=== PATIENT | male | born 1995 | race Caucasian/White ===

== ENCOUNTER 2017-05-27 01:08 | Inpatient (IN) | payer OTHER ==
[~2017-05-27] VITALS: Ht 195.6 cm; Wt 95.0 kg
[~2017-05-27 01:08] MED LIST: CEPH500C3 PO; KETO10 PO; LEXA20TA PO; TRAZ100 PO
[2017-05-27 01:25] VITALS: BP 119/76; PULSE 81; PULSE 87; RESP 12; TEMP 98.1; O2SAT 97
[2017-05-27] MEDS ORDERED: SODIUM CHLORIDE 0.9% FLUSH 10 ML FLUSH IV FLUSH PRN (01:30)
[2017-05-27 01:49] LABS: BASOPHIL # 0.1 TH/MM3 (0-0.2); BASOPHIL % 0.8 % (0.0-2.0); EOSINOPHIL # 0.1 TH/MM3 (0-0.4); EOSINOPHIL % 0.9 % (0.0-4.0); HEMO FLAGS DIFF FINAL; LYMPH % 28.9 % (9.0-44.0); LYMPHOCYTE # 1.9 TH/MM3 (1.0-4.8); MEAN CELL VOLUME 82.7 FL (80.0-100.0); MEAN CORPUSCULAR HEMOGLOBIN 26.8 PG (27.0-34.0); MEAN CORPUSCULAR HGB CONC 32.4 % (32.0-36.0); MONO % 9.9 % (0.0-8.0); NEUT % 59.5 % (16.0-70.0); PLATELET COUNT 216 TH/MM3 (150-450); RED BLOOD COUNT 5.21 MIL/MM3 (4.50-5.90); RED CELL DISTRIBUTION WIDTH 15.6 % (11.6-17.2); WHITE BLOOD COUNT 6.6 TH/MM3 (4.0-11.0)
--- NOTE | 2017-05-27 01:53 | PD ---
HPI Chief Complaint: OD/ Ingestion Time Seen by Provider: 01:30 Travel History International Travel<30 days: No Contact w/Intl Traveler<30days: No Traveled to known affect area: No History of Present Illness HPI Patient comes in under a [place] act if reportedly ingesting 8 sleeping pills to try to harm himself per [place]. Patient states he doesn't know why he did this. Patient states he took eight 50 mg Seroquel. Patient denies any suicidal or homicidal ideations. Patient states he is prescribed Seroquel and normally takes 3 tabs to help him sleep as needed. Denies any chest pain, shortness of breath, fevers, abdominal pain, headaches, numbness or tingling anywhere. PFSH Past Medical History Arthritis: No Asthma: No Autoimmune Disease: No Depression: Yes Heart Rhythm Problems: No High Cholesterol: No Chemotherapy: No Chest Pain: No Congestive Heart Failure: No COPD: No Cerebrovascular Accident: No Diminished Hearing: No Endocrine: No GERD: No Genitourinary: No Headaches: No (See EMR) Hiatal Hernia: No Immune Disorder: No Kidney Stones: No Musculoskeletal: No Neurologic: No Psychiatric: Yes (Adjustment Reaction with mixed emotional featuers/Marijuana use) Reproductive: No Immunizations Current: Yes Migraines: No Radiation Therapy: No Renal Failure: No Sickle Cell Disease: No Sleep Apnea: No Thyroid Disease: No Ulcer: No Past Surgical History AICD: No Arteriovenous Shunt: No Pacemaker: No Other Surgery: Yes Social History Alcohol Use: Yes (PT STATES " ALMOST NEVER") Tobacco Use: Yes Substance Use: No (PATIENT DENIES) Allergies-Medications (Allergen,Severity, Reaction): Coded Allergies: No Known Allergies (Verified , 08/06/16) Reported Meds & Prescriptions Reported Meds & Active Scripts Active Reported Seroquel (Quetiapine Fumarate) 50 Mg Tab 50 Mg PO HS Review of Systems Except as stated in HPI: all other systems reviewed are Neg Physical Exam Narrative GENERAL: Well-developed, well nourished, in no acute distress, and non-ill appearing. Sleepy but answering questions appropriately. SKIN: Focused skin assessment warm and dry. HEAD: Atraumatic. Normocephalic. EYES: Pupils equal, pinpoint, and round. EOMI. No scleral icterus. No injection or drainage. ENT: No nasal bleeding or discharge. Mucous membranes pink and moist. NECK: Trachea midline. Supple. No nuclear rigidity. CARDIOVASCULAR: Regular rate and rhythm. No murmur appreciated. RESPIRATORY: No accessory muscle use. No respiratory distress. Clear to auscultation. Breath sounds equal bilaterally. MUSCULOSKELETAL: No obvious deformities. No clubbing. No cyanosis. No edema. Full range of motion. NEUROLOGICAL: Awake and alert. No obvious cranial nerve deficits. Motor grossly within normal limits. Normal speech. PSYCHIATRIC: Abnormal insight and judgment normal. Data Data Last Documented VS Vital Signs Date Time Temp Pulse Resp B/P Pulse Ox O2 Delivery O2 Flow Rate FiO2 05/27/17 04:11 80 16 127/60 98 Room Air 05/27/17 01:25 98.1 Orders Complete Blood Count With Diff (05/27/17 01:18) Comprehensive Metabolic Panel (05/27/17 01:18) Electrocardiogram (05/27/17 01:18) Psych Screen (05/27/17 01:18) Drug Screen, Random Urine (05/27/17:18) Alcohol (Ethanol) (05/27/17 01:18) Salicylates (Aspirin) (05/27/17 01:18) Tylenol (Acetaminophen) (05/27/17 01:18) Iv Access Insert/Monitor (05/27/17:18) Ecg Monitoring (05/27/17:18) Oximetry (05/27/17 01:18) Sodium Chloride 0.9% Flush (Ns Flush) (05/27/17 01:30) Call Poison Control (05/27/17 01:18) Sodium Chlor 0.9% 1000 Ml Inj (Ns 1000 M (05/27/17 02:00) Electrocardiogram (05/27/17 ) Labs Laboratory Tests Test 05/27/17 05/27/17 01:35 02:00 White Blood Count 6.6 TH/MM3 Red Blood Count 5.21 MIL/MM3 Hemoglobin 13.9 GM/DL Hematocrit 43.0 % Mean Corpuscular Volume 82.7 FL Mean Corpuscular Hemoglobin 26.8 PG Mean Corpuscular Hemoglobin 32.4 % Concent Red Cell Distribution Width 15.6 % Platelet Count 216 TH/MM3 Mean Platelet Volume 9.1 FL Neutrophils (%) (Auto) 59.5 % Lymphocytes (%) (Auto) 28.9 % Monocytes (%) (Auto) 9.9 % Eosinophils (%) (Auto) 0.9 % Basophils (%) (Auto) 0.8 % Neutrophils # (Auto) 4.0 TH/MM3 Lymphocytes # (Auto) 1.9 TH/MM3 Monocytes # (Auto) 0.7 TH/MM3 Eosinophils # (Auto) 0.1 TH/MM3 Basophils # (Auto) 0.1 TH/MM3 CBC Comment DIFF FINAL Differential Comment Sodium Level 142 MEQ/L Potassium Level 3.5 MEQ/L Chloride Level 108 MEQ/L Carbon Dioxide Level 26.5 MEQ/L Anion Gap 8 MEQ/L Blood Urea Nitrogen 13 MG/DL Creatinine 1.20 MG/DL Estimat Glomerular Filtration 76 ML/MIN Rate Random Glucose 96 MG/DL Calcium Level 8.7 MG/DL Total Bilirubin 0.2 MG/DL Aspartate Amino Transf 22 U/L (AST/SGOT) Alanine Aminotransferase 21 U/L (ALT/SGPT) Alkaline Phosphatase 55 U/L Total Protein 7.2 GM/DL Albumin 3.9 GM/DL Salicylates Level 3.5 MG/DL Acetaminophen Level LESS THAN 2.0 MCG/ML Ethyl Alcohol Level LESS THAN 3 MG/DL Urine Opiates Screen NEG Urine Barbiturates Screen NEG Urine Amphetamines Screen NEG Urine Benzodiazepines Screen NEG Urine Cocaine Screen POS Urine Cannabinoids Screen POS MDM Medical Decision Making Medical Screen Exam Complete: Yes Emergency Medical Condition: Yes Interpretation(s) EKG reviewed by Dr. Wagner, shows normal sinus rhythm with ventricular rate of 83. No STEMI. Repeat EKG reviewed by Dr. Wagner. Shows normal sinus rhythm ventricular rate of 77. No STEMI. Differential Diagnosis Homicidal, suicidal, intentional ingestion, accidental ingestion, other Narrative Course Patient is placed on manager operations, IV was established, and labs were drawn. Poison control was contacted by RN and recommends large patient for hypotension and seizures. Labs pending currently. 0225 patient reassessed found to be resting comfortably in bed in no acute distress. Vital signs stable on cardiac monitoring. Patient was seen and examined. Labs were obtained and reviewed. Patient medically cleared for further treatment and evaluation by psych. Final disposition per psych. Diagnosis Primary Impression: Substance abuse Additional Impressions: Ingestion of substance Qualified Code: T65.94XA - Ingestion of substance, undetermined intent, initial encounter Medical clearance for psychiatric admission Condition: Stable Abad Hurst May 27, 2017 01:53
[2017-05-27] MEDS ORDERED: SODIUM CHLOR 0.9% 1000 ML INJ 1,000 ML IV ONE (02:00)
[2017-05-27] MEDS ORDERED: SERO50TA PO (02:01)
[2017-05-27 02:10] VITALS: BP 107/65; PULSE 80; RESP 12; O2SAT 97
[2017-05-27 02:27] LABS: ALT (GPT) 21 U/L (12-78); ANION GAP 8 MEQ/L (5-15); AST (GOT) 22 U/L (15-37); BICARBONATE 26.5 MEQ/L (21.0-32.0); BLOOD UREA NITROGEN 13 MG/DL (7-18); CHLORIDE 108 MEQ/L (98-107); GLOMERULAR FILTRATION RATE 76 ML/MIN (>89); POTASSIUM 3.5 MEQ/L (3.5-5.1); SODIUM (NA) 142 MEQ/L (136-145)
[2017-05-27 02:29] LABS: ACETAMINOPHEN LESS THAN 2.0 MCG/ML (10.0-30.0); ALKALINE PHOSPHATASE 55 U/L (45-117); TOTAL BILIRUBIN ADULT 0.2 MG/DL (0.2-1.0)
[2017-05-27 03:17] LABS: AMPHETAMINE, URINE NEG (NEG); BARBITURATES, URINE NEG (NEG); COCAINE, URINE POS (NEG)
[2017-05-27 04:11] VITALS: BP 127/60; PULSE 80; RESP 16; O2SAT 98
[2017-05-27 08:00] VITALS: BP 130/76; PULSE 86; RESP 16; TEMP 98; O2SAT 100
--- NOTE | 2017-05-27 15:44 | EKG ---
Date Performed: 05/27/2017 Time Performed: 04:43:00 PTAGE: 21 years EKG: Sinus rhythm EARLY REPOLARIZATION BORDERLINE ECG Compared to the PREVIOUS TRACING from 05/27/17, no significant changes DOCTOR: Russell Jenkins Interpretating Date/Time 05/27/2017 15:43:27
--- NOTE | 2017-05-27 15:51 | EKG ---
Date Performed: 05/27/2017 Time Performed: 01:23:13 PTAGE: 21 years EKG: Sinus rhythm POSSIBLE LEFT ATRIAL ENLARGEMENT POSSIBLE RIGHT VENTRICULAR CONDUCTION DELAY EARLY REPOLARIZATION DAMEON RDERLINE ECG Compared to the PREVIOUS TRACING from 02/10/13, right ventricular conduction delay and early repolarizati on are new DOCTOR: Russell Jenkins Interpretating Date/Time 05/27/2017 15:50:56
[2017-05-27] MEDS ORDERED: LEXA20TA PO (17:13)
[2017-05-27 19:00] VITALS: BP 131/69; PULSE 76; RESP 20; TEMP 98.7; O2SAT 97
[2017-05-27] MEDS ORDERED: ACETAMINOPHEN 325 MG TAB PO PRN (19:15)
[2017-05-27] MEDS ORDERED: MAGNESIUM HYDROXIDE SUSP 30 ML CUP PO PRN (19:15)
[2017-05-27] MEDS ORDERED: ALUMINUM/MAGNESIUM/SIMETH 30 ML CUP PO PRN (19:15)
[2017-05-27] MEDS: LORazepam 1 MG TAB PO PRN (20:57)
[2017-05-28 06:00] VITALS: BP 111/66; PULSE 62; RESP 18; TEMP 95.4; O2SAT 98
[2017-05-28] MEDS: ESCITALOPRAM OXALATE 20 MG TAB PO SCH (08:41)
[2017-05-28] MEDS ORDERED: PNEUMOCOCCAL POLYVALENT INJ 25 MCG/0.5 ML SYR IM ONE (09:00)
[2017-05-28 09:02] LABS: LDL CHOLESTEROL 42 MG/DL (0-99)
[2017-05-28 10:51] LABS: HEMOGLOBIN A1a 1.6 %; HEMOGLOBIN A1b 1.5 %; HEMOGLOBIN Ao 85.1 %; HEMOGLOBIN P3 3.6 %
--- NOTE | 2017-05-28 14:08 | MH ---
cc: BEBETO FAYE M.D. DATE OF ADMISSION: 05/27/2017 PRESENTING CHIEF COMPLAINT AND HISTORY OF PRESENT ILLNESS: This 21-year-old white male was brought to the emergency room of this hospital under the [place] Act initiated by the [place] [employer] because of a suspected overdose on 8 Seroquel at 50 mg each. He was evaluated by the emergency room physician and was considered medically stable and was referred to the psychiatric screener. During this evaluation, he indicated that he usually takes 200 milligrams to 400 milligrams of Seroquel when he has a difficult night; otherwise, he takes 50 milligrams at bedtime. He stated that he took 8 50-mg each of Seroquel in an attempt to fall sleep and emphasized that he had no intention to harm himself. He has previously been admitted to this unit in 2012 under the [place] Act precipitated by an argument with his father over his drug abuse. Again, he was admitted in May of 2016 after writing suicidal statements on his Facebook. Both of these admissions were under my service. The psychiatric screener reviewed the case with me and it was felt he needed to be hospitalized for further assessment and treatment. It is worth noting that both of these previous admissions were to a great extent due to chronic drug abuse. Subsequent to his last admission to this unit in May of 2016, he was transferred to the drug rehab program [facility]. Also during that admission, a mild to moderate degree of depression was noticed and as such, he was started on Lexapro. Please refer to my previous evaluation for details. Prior to this evaluation, the case was discussed with the nursing staff on the unit who indicated that since admission he has been calm and cooperative, though his usual superficial self. He has not exhibited any aggressive or self-destructive behavior nor has he made any threats of harm to self or others. At the time of this evaluation, Mr. Torres was able to recognize me. As usual, he minimized the circumstances leading to this hospitalization, "I haven't been sleeping well so I took 4 Seroquel 50-mg each around 10:00 p.m. and then I took 4 more. My girlfriend came into the bathroom and asked me what I was doing and I said, "Whatever was left in the bottle I took because I couldn't sleep. She called my father and he notified the police and they brought me here. I wasn't trying to hurt myself. I just wasn't able to sleep". While describing this, he kept smiling. He denied any significant psychosocial stressor contributing to his current behavior. Specifically, he denied any problems with his girlfriend. However after a great deal of exploration, he acknowledged experiencing "a little stress" at work. He is working in a local restaurant. On further questioning, he denied any persistent feeling of sadness, change in appetite, memory or concentration. He stated that he has continued on Lexapro up until about two weeks ago when he "ran out". Again, he continued to emphasize the fact that his overdose was not a suicide attempt. He denied any previous suicide attempts, though had threatened it in the past. On further questioning, he did not give any history suggestive bipolar affective disorder. When attempting to explore any recent history of alcohol or drug abuse he as usual denied, but then kept changing his statement the more this issue was pursued. He stated he was able to "stay clean" for a couple of months after discharge from the [facility] in June of last year but then three months ago he relapsed and started abusing opiates including intravenous use. As such, he was readmitted and completed the program and was discharged two months ago. He stated that he has remained "clean" up until now. However when informed of the fact that his urine drug screen is positive for cocaine and cannabinoid, he smiled and responded, "Yeah, I use it here and there". He denied using cocaine intravenously. He was very vague about the extent of his cocaine abuse. 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 However when questioned about it this time, he denied dealing in drugs. PAST PSYCHIATRIC HISTORY: As mentioned, he has been previously admitted to this unit twice and to the [facility] twice in the last year. He stated that he has not followed up with any psychiatrist since his discharge from this unit in June of last year and has been receiving his psych medications from Dr. Simpson, his physician at the [facility]. PAST MEDICAL HISTORY: He denied any known medical illness. Specifically, he denied any history of any cardiac problem, thyroid dysfunction, head injury or seizures. ALLERGIES: HE DENIED ANY DRUG ALLERGIES. FAMILY HISTORY AND PERSONAL HISTORY: Please refer to my previous evaluation. Suffice it to say that his father works in the radiology department at this hospital. He is currently working in a local restaurant. He is living with a different girlfriend with whom he stated that the relationship is "awesome". He described her as being very supportive. He denied any alcohol abuse. He stated he has been drinking "one beer here and there". His last drink was "a beer" on the day of admission. CLINICAL OBSERVATION AND MENTAL STATUS EXAMINATION: At the time of this evaluation, Mr. Torres presented as a casually dressed reasonably well-groomed tall, well-built white male who looked his stated age. As during previous admissions, he was rather superficial, vague and evasive minimizing the use of drugs. His responses to questions were relevant and logical. No overt anger or hostility was noticed. No tremors were noticed. His speech was coherent and appropriate. His affect was appropriate and pleasant. Subjectively he described his mood as, "I've been feeling fine". There was no evidence of any thought disorder. No oxana delusions, auditory or visual hallucinations were noticed or reported. He denied active suicidal or homicidal ideations or intent at this time. As mentioned. he repeatedly emphasized his overdose was not a suicide attempt and was an attempt to fall asleep. He denied any previous suicide attempts. Cognitive functions: He was alert, oriented to place, person and situation. Memory: Immediate: He could do 5 digits forward and 4 digits backward. Recent: He could recall 3/3 objects after 10 minutes. Remote: He could recall presidents up to President Sameer. His attention and concentration was impaired. He could do serial sevens up to 72 only with difficulty. His judgment and insight was felt to be fair. REVIEW OF SYSTEMS: He denied any diarrhea, vomiting or abdominal pain. He denied any dysuria, hematuria or frequency. He denied any chest pain, palpitations or dyspnea on exertion. He denied any muscle weakness, numbness or any history of seizures. PHYSICAL EXAMINATION: Physical examination was not done as this has already been done in the emergency room. No acute medical issues were identified. No gross neurological deficits noticed. DIAGNOSTIC IMPRESSION: AXIS I: Adjustment reaction with mixed emotional features. Polysubstance abuse. Substance-induced mood disorder. 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 AXIS III: No diagnosis. AXIS IV: Severity of psychosocial stressors: moderate i.e. job-related stress, problems with parents. AXIS V: Current GAF score 40. FORMULATION AND TREATMENT PLAN: Based on this evaluation and my knowledge of his case, Mr. Torres' presentation is essentially the same as during previous hospitalizations. The major issue is substance abuse and noncompliance. Unfortunately despite addition to drug rehab programs twice, he has not been able to maintain a chemically free lifestyle. In addition, he has not been very compliant with the psychiatric followup either. As such, his overall prognosis is poor. At this time, he is denying any suicidal or homicidal ideations. He is not exhibiting any acute psychotic symptoms. I discussed with him the need for him to work on the substance abuse issues seriously and sincerely without which he will not be able to make progress in other aspects of his life. He was receptive to the feedback. As mentioned earlier, he has experienced a mild to moderate degree of depression secondary to the substance abuse. He has been off of the Lexapro for two weeks. As such, he will be restarted on it. The above-mentioned issues will be further explored and addressed in individual psychotherapy sessions. He will participate in various other unit activities i.e. occupational therapy, recreational therapy, group therapy. His identified problems are: 1. Substance abuse. 2. Current psychosocial stressors 3. Noncompliance. His assets are: 1. He is verbal. 2. Good physical healthy. His estimated length of stay is five to seven days. MD LOUISA Comer/STEPHANIE /1:23 PM /1:50 PM
[2017-05-28] MEDS: LORazepam 1 MG TAB PO PRN ×2 (15:39→21:04)
[2017-05-28 17:51] VITALS: BP 155/67; PULSE 71; RESP 18; TEMP 98.4; O2SAT 100
[2017-05-29 05:41] VITALS: BP 122/56; PULSE 62; RESP 19; TEMP 97.3; O2SAT 99
[2017-05-29] MEDS: ESCITALOPRAM OXALATE 20 MG TAB PO SCH (08:47)
[2017-05-29] MEDS: LORazepam 1 MG TAB PO PRN ×2 (15:51→23:29)
[2017-05-30 05:25] VITALS: BP 141/63; PULSE 57; RESP 19; TEMP 98.1; O2SAT 97
[2017-05-30 06:32] VITALS: BP 141/63; PULSE 57; RESP 19; TEMP 98.1; O2SAT 97
[2017-05-30] MEDS: ESCITALOPRAM OXALATE 20 MG TAB PO SCH (08:38)
[2017-05-30] MEDS: LORazepam 1 MG TAB PO PRN ×2 (15:26→21:40)
[2017-05-30 15:36] VITALS: BP 141/80; PULSE 70; RESP 18; TEMP 98.2; O2SAT 98
[2017-05-31 05:44] VITALS: BP 146/76; PULSE 61; RESP 18; TEMP 98; O2SAT 100
[2017-05-31] MEDS: ESCITALOPRAM OXALATE 20 MG TAB PO SCH (08:46)
--- NOTE | 2017-05-31 11:11 | EKG ---
Date Performed: 05/30/2017 Time Performed: 21:19:28 PTAGE: 21 years EKG: Sinus rhythm WITH SINUS ARRHYTHMIA POSSIBLE RIGHT VENTRICULAR CONDUCTION DELAY BORDERLINE ECG PREVIOUS TRACING : 05/27/2017 04.43 Compared to prior tracing no significant change DOCTOR: Juventino Vieyra Interpretating Date/Time 05/31/2017 11:10:50
--- NOTE | 2017-05-31 14:24 | PD.TTN ---
Present for Treatment Team Treatment Team Staff: Provider (Dr. Dickinson), Nurse (Maddison), Psych Therapist ( Marie), Occupational Therapist (Ronald) Patient Problems 1. Discharge planning 2. Medication compliance 3. Knowledge deficit 4. Lack of coping skills Progress Toward Goals Provider Input: Patient is able to identify issues resulting in his admission. patient states that he is aware of his impulsivity and his substance abuse. Patient is encouraged to continue to be medication complaint and to continue his outpatient care, such as NA meetings and also seeing outpatient therapist. Nurse Input: Patient has been compliant with medications and has had no behavioral issues on the unit. Psych Therapist Input: Patient is coopertive and calm and seems to gain some insight upon admission. patient provides positive coping skills, such as deep breathing, strong social support and being complaint with medications. Occupational Therapist Input: Patient attends groups reguarly and is active throughout unit. patient speaks with peer on unit and has no issues with redirection. Marie Lua [facility] May 31, 2017 14:24
--- NOTE | 2017-05-31 20:38 | MD ---
cc: BEBETO FAYE M.D. ADMISSION DATE: 05/27/2017 DISCHARGE DATE: 05/31/2017 ADMISSION DIAGNOSES [place] I: Adjustment reaction with mixed emotional features. Polysubstance abuse. Substance-induced mood disorder. 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 [place] III: No diagnosis. [place] IV: Severity of psychosocial stressors moderate i.e. job-related stress, problems with parents. [place] V: Current GAF score 40 DISCHARGE DIAGNOSIS [place] I: Adjustment reaction with mixed emotional features. Polysubstance abuse. Substance-induced mood disorder. 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 [place] III: No diagnosis. [place] IV: Severity of psychosocial stressors moderate i.e. job-related stress, problems with parents. [place] V: Current GAF score 65. HISTORY This 21-year-old white male was brought to the emergency room this [facility] under the [place] initiated by the [place] [employer] because of suspected overdose on eight Seroquel 50 mg each. He has been previously admitted to this unit twice, the first time in 2012 and second time in May 2016 both admission under my service. Please refer to my initial evaluation for details. Lab workup CBC with differential unremarkable. CMP unremarkable. Liver enzymes normal. Urine drug screen positive for cocaine and cannabinoid. Blood alcohol level less than 3. EKG done in the emergency room showed early repolarization reported as borderline EKG. Repeated again in the emergency room interpreted as possible left atrial enlargement, possible right ventricular conduction delay. Compared to 02/10/2013 right ventricular conduction delay and early repolarization are new. Repeated on 05/30/2017 was interpreted as sinus arrhythmia, possible right ventricular conduction delay, borderline EKG. It should be mentioned that the patient was asymptomatic throughout this admission. Specifically denied any cardiorespiratory symptoms i.e. chest pain, palpitations, shortness of breath, etc. This was discussed with the patient during his hospital stay and was given copies of his EKG and other lab workup to followup with the primary care physician as the patient insisted on discharge. HOSPITAL COURSE Just like during previous hospitalizations initially he denied / minimized the drug abuse. However, gradually he opened up. Apparently after his discharge from this unit he was admitted to the drug rehab program called [facility]. He completed a program, stayed chemically free for a short period and then relapsed and as such was re-admitted. He again started abusing drugs after few weeks. Specifically he started using cocaine and marijuana. Throughout this hospital stay this issue was addressed in individual psychotherapy sessions. He began to gain some insight. Specifically he recognized the need to work on this issue more sincerely and seriously. He denied his overdose was a suicide attempt, acknowledged it was impulsive action on his part and verbalized motivation to work on this issue as well. The need for outpatient psychiatric followup was emphasized to him. It should be noted that after discharge from this unit last time he did not follow up with the psychiatrist and therapist. To alleviate his depression he was started on Lexapro which he had discontinued for several months weeks prior to this admission. The role of antidepressant in his overall treatment approach was also explained to him again. 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 Throughout this hospital stay he did not exhibit any aggressive or self-destructive behavior, nor did he make any threats of harm to self or others. He attended the treatment team meeting today where he displayed a very positive attitude and improvement in his insight. He again repeatedly denied his overdose was a suicide attempt and verbalized motivation to work on his impulse control. He was very appreciative and complementary regarding the services provided to him during this hospital stay. It was felt by the treatment team that he has received optimum benefit out of this admission and did not meet the [place] criteria and could be discharged home per his and his father's request. He indicated that he has a refill on Lexapro prescribed to him by Dr. Simpson, his attending physician at the drug rehab program. He denied any somatic complaints especially any cardiorespiratory. As mentioned he was given copies of his EKG and the lab workup to follow up with his primary care physician. He is recommended to follow up psychiatrically with Dr. Fleming and with his therapist at [facility]. He was strongly encouraged to attend NA meetings. MD LOUISA Comer/ADDY /5:59 PM /8:21 PM
== END 2017-05-31 15:25 | disposition home or self-care (01) | DRG 882 ==
LOC: NEPD 01:08 → NEDA 18:06 → H260 18:34
PROVIDERS: ADMIT Psychiatry & Neurology Psychiatry; ATTEND Psychiatry & Neurology Psychiatry
DX: F43.23 Adjustment disorder with mixed anxiety and depressed mood (principal); Z91.19 Patient's noncompliance with other medical treatment and regimen; F14.10 Cocaine abuse, uncomplicated; F60.3 Borderline personality disorder; F19.24 Other psychoactive substance dependence with psychoactive substance-induced mood disorder; F60.89 Other specific personality disorders; Z72.0 Tobacco use
CPT/HCPCS: 80053; 80061; 80307; 83036; 85025; 93005; J7030